=== PATIENT | female | born 1960 | race Two or more races ===

== ENCOUNTER 2018-03-02 19:45 | Inpatient (IN) | payer OTHER ==
[~2018-03-02] VITALS: Ht 152.4 cm; Wt 67.5 kg
[2018-03-02 22:31] LABS: Basophils # (auto) 0 uL; Basophils % (auto) 0.3 % (0.0-2.0); Eosinophils # (auto) 0 uL; Hematocrit 43.6 % (36.0-46.0); Hemoglobin 14.6 g/dL (12.2-16.2); Lymphocytes # (auto) 1.3 uL; Lymphocytes % (auto) 7.9 % (10.0-50.0); Mean Corpuscular Hemoglobin 29.8 pg (28.0-32.0); Mean Corpuscular Hgb Conc. 33.4 g/dL (32.0-36.0); Mean Corpuscular Volume 89.4 fL (80.0-100.0); Monocytes # (auto) 0.6 uL; Monocytes % (auto) 3.9 % (0.0-12.0); Neutrophils % (auto) 87.9 % (37.0-80.0); Platelet Count (auto) 332 10^3/uL (140-450); Red Blood Cells 4.88 10^6/uL (4.0-5.20); Red Cell Distribution Width 13.1 % (11.8-14.3); White Blood Cell 15.9 10^3/uL (4.4-10.8)
[2018-03-02 22:36] LABS: Urine Amorphous Crystal MOD /hpf (None Seen); Urine Bacteria NONE SEEN /hpf (None Seen); Urine Blood 1+ /uL (Negative); Urine Mucus FEW (None Seen); Urine Specific Gravity 1.018 (1.001-1.035); Urine WBC 11 /hpf (0 - 5)
[2018-03-02 22:52] LABS: INR 0.96 (0.9-1.15); Partial Thromboplastin Time 25.1 sec (23.78-33.04); Prothrombin Time 10.3 sec (9.27-12.13)
[2018-03-02 22:59] LABS: Alanine Aminotransferase 29 U/L (13-56); Alkaline Phosphatase 83 U/L (45-117); Amylase 45 U/L (25-115); Anion Gap 9 (5-15); Aspartate Aminotransferase 18 U/L (15-37); BUN/Creatinine Ratio 23.7; Bilirubin, Total 0.8 mg/dL (0.2-1.0); Blood Urea Nitrogen 18 mg/dL (7-18); Calcium 9.4 mg/dL (8.5-10.1); Carbon Dioxide 26 mmol/L (21-32); Chloride 99 mmol/L (98-107); GFR African American 101 mL/min; GFR Non-African American 83 mL/min; Glucose 138 mg/dL (74-106); Lipase 116 U/L (73-393); Magnesium 2.6 mg/dL (1.6-2.6); Potassium 3.4 mmol/L (3.5-5.1); Sodium 134 mmol/L (136-145); Total Protein 7.9 g/dL (6.4-8.2)
[2018-03-03] VITALS (9 sets, daily range): BP systolic 123–155; BP diastolic 56–84
[2018-03-03] MEDS ORDERED: PIPERACILLIN-TAZOB 3.375GM 100 ML IV ONE (02:00)
[2018-03-03] MEDS ORDERED: ONDANSETRON HCL 4 MG/2 ML VIAL IV ONE (02:00)
[2018-03-03] MEDS ORDERED: SODIUM CHLORIDE 0.9% 1,000 ML IV ONE (02:00)
[2018-03-03] MEDS ORDERED: ACETAMINOPHEN 325 MG TAB PO PRN (02:30)
[2018-03-03] MEDS ORDERED: SODIUM CHLORIDE 0.9% 1,000 ML IV SCH (02:30)
[2018-03-03] MEDS ORDERED: MORPHINE SULF INJ 2 MG/ML SYRINGE 1ML IV PRN (02:30)
[2018-03-03] MEDS ORDERED: ONDANSETRON HCL 4 MG/2 ML VIAL IV PRN (02:30)
[2018-03-03] MEDS ORDERED: HYDROcodone-ACET 5/325MG TAB PO PRN (02:30)
[2018-03-03] MEDS ORDERED: DEXTROSE (50%) 50ML SYRG IV PRN (02:30)
[2018-03-03] MEDS: InsuLIN REG 1unit/0.01ml Soln (100units/ml) SC SCH ×3 (06:00→18:00)
[2018-03-03] MEDS ORDERED: CHOL20007 OR (06:05)
[2018-03-03] MEDS ORDERED: HYDR12.56 PO (06:05)
[2018-03-03] MEDS ORDERED: AMLO5TAB13 PO (06:05)
[2018-03-03] MEDS: ACCU-CHEK COMFORT CURVE STRIP VI SCH ×3 (06:37→18:33)
[2018-03-03] MEDS ORDERED: GASTROGRAFIN 120 ML SOL ONE (07:39)
[2018-03-03] MEDS ORDERED: cefTRIAXone 1GM/10ml IVPUSH 10 ML IV SCH (09:00)
[2018-03-03] MEDS: PANTOPRAZOLE 40 MG/10 ML VIAL IV SCH (09:49)
[2018-03-03] MEDS ORDERED: POTASSIUM CHL 20 Meq TABLET PO ONE (13:30)
[2018-03-03] MEDS ORDERED: amLODIPine BESYLATE 5 MG TAB PO ONE (15:45)
[2018-03-03] MEDS: SODIUM CHLORIDE 0.9% 1,000 ML IV SCH (19:49)
[2018-03-04] MEDS: ACCU-CHEK COMFORT CURVE STRIP VI SCH ×3 (00:01→11:59)
[2018-03-04 05:00] VITALS: BP 128/58
[2018-03-04] MEDS: InsuLIN REG 1unit/0.01ml Soln (100units/ml) SC SCH ×3 (05:52→11:58)
[2018-03-04] MEDS: SODIUM CHLORIDE 0.9% 1,000 ML IV SCH (05:53)
[2018-03-04 07:13] LABS: Basophils # (auto) 0 uL; Basophils % (auto) 0.7 % (0.0-2.0); Eosinophils # (auto) 0.1 uL; Eosinophils % (auto) 1.7 % (0.0-7.0); Hematocrit 39.7 % (36.0-46.0); Hemoglobin 13.5 g/dL (12.2-16.2); Lymphocytes # (auto) 2.5 uL; Lymphocytes % (auto) 36.9 % (10.0-50.0); Mean Corpuscular Hemoglobin 31.2 pg (28.0-32.0); Mean Corpuscular Volume 91.7 fL (80.0-100.0); Monocytes # (auto) 0.5 uL; Monocytes % (auto) 7.7 % (0.0-12.0); Neutrophils # (auto) 3.6 uL; Nucleated Red Blood Cells % 0.2 %; Platelet Count (auto) 280 10^3/uL (140-450); Red Blood Cells 4.33 10^6/uL (4.0-5.20); White Blood Cell 6.8 10^3/uL (4.4-10.8)
[2018-03-04 07:35] LABS: Albumin 3.4 g/dL (3.4-5.0); BUN/Creatinine Ratio 31.7; Bilirubin, Total 0.8 mg/dL (0.2-1.0); Calcium 8.5 mg/dL (8.5-10.1); Total Protein 6.8 g/dL (6.4-8.2)
[2018-03-04 07:36] LABS: Cholesterol 170 mg/dL (< 200); HDL Cholesterol 43 mg/dL (40-59); LDL Cholesterol 119 mg/dL (< 100); Triglycerides 123 mg/dL (< 150)
[2018-03-04 08:00] VITALS: BP 144/84
[2018-03-04 09:28] VITALS: BP 144/84
[2018-03-04] MEDS: PANTOPRAZOLE 40 MG/10 ML VIAL IV SCH (09:41)
[2018-03-04] MEDS ORDERED: amLODIPine BESYLATE 5 MG TAB PO SCH (10:00)
[2018-03-04 13:00] VITALS: BP 138/71
== END 2018-03-04 13:47 | disposition home or self-care (01) | DRG 390 ==
LOC: ER 19:45 → OVERFLOW 19:46 → WEST WING 03-03 04:58
PROVIDERS: ADMIT Nurse Practitioner; ATTEND Internal Medicine
DX: K56.609 Unspecified intestinal obstruction, unspecified as to partial versus complete obstruction (principal); E11.9 Type 2 diabetes mellitus without complications; D72.829 Elevated white blood cell count, unspecified; E87.6 Hypokalemia; I10 Essential (primary) hypertension; K57.90 Diverticulosis of intestine, part unspecified, without perforation or abscess without bleeding; K76.0 Fatty (change of) liver, not elsewhere classified; Z90.710 Acquired absence of both cervix and uterus
CPT/HCPCS: 36415; 71046; 74176; 74250; 80053; 80061; 81001; 82150; 82962; 83036; 83690; 83735; 84484; 85025; 85610; 85730; 87040; 93005; 96361; 96365; 96375; C9113; J0696; J2405; J2543